=== PATIENT | female | born 1990 | race Caucasian/White ===

== ENCOUNTER 2016-11-07 14:32 | Emergency (ER) | payer OTHER ==
[~2016-11-07] VITALS: Ht 167.6 cm; Wt 93.0 kg
[2016-11-07 14:54] VITALS: Ht 167.6 cm; Wt 93.0 kg
[2016-11-07] MEDS ORDERED: CEPH-443 PO (15:57)
--- NOTE | 2016-11-07 16:00 | ERD ---
ER Documentation Chief Complaint Date/Time DATE: 11/07/16 TIME: 15:58 Chief Complaint swelling of the left ring finger with abscess HPI This 25-year-old female presents with some swelling and redness on the proximal left ring finger. History is significant for possible thorn foreign body sustained 3 years ago. She denies any new injury, fevers. She denies any bleeding or discharge. She has noticed some increasing redness and swelling over the last week ROS All systems reviewed and are negative except as per history of present illness. Medications Home Meds Active Scripts Cephalexin* (Keflex*) 500 Mg Capsule, 500 MG PO QID for 7 Days, CAP Prov:STORM HERZOG MD 11/07/16 Allergies Allergies: Coded Allergies: No Known Allergy (Unverified , 11/07/16) PMhx/Soc Medical and Surgical Hx: pt denies Medical Hx, pt denies Surgical Hx Physical Exam Vitals Vital Signs Date Time Temp Pulse Resp B/P Pulse Ox O2 Delivery O2 Flow Rate FiO2 11/07/16 14:54 98.4 112 20 119/71 99 Physical Exam Const: [] Alert, [id number] per Head: Atraumatic Eyes: Normal Conjunctiva ENT: Normal External Ears, Nose and Mouth. Neck: Full range of motion..~ No meningismus. Resp: Clear to auscultation bilaterally Cardio: Regular rate and rhythm, no murmurs Abd: Soft, non tender, non distended. Normal bowel sounds Skin: No petechiae or rashes. There is a 1 cm erythematous swelling at the proximal volar aspect the left ring finger. There is a small pustule with a black dot Back: No midline or flank tenderness Ext: No cyanosis, or edema Neur: Awake and alert Psych: Normal Mood and Affect Procedures/MDM Procedure note-attempt at ring removal was performed but patient declined ring cutting. Further attempts at removal removed at this there is no significant circumferential swelling. Procedure note-1 cc of lidocaine was used for local nutrition around the area of erythema and pustule on the proximal left third digit. Posterior was unroofed and debrided and approximately 0.75 cm old thorn was removed. Pus was expressed. Wound was dressed and patient tolerated procedure well. Patient presents with an old subcutaneous thorn foreign body successfully removed from the proximal left third digit. There is no significant signs of cellulitis and no evidence of tenosynovitis no appreciation of residual foreign body. There is no evidence of deficits or ischemia. Patient was discharged home instructions for wound care and Keflex. Patient is advised to return for increased redness, fevers, new worsening symptoms. Departure Diagnosis: Primary Impression: Foreign body (FB) in soft tissue Condition: Stable Patient Instructions: Foreign Body, Soft Tissue (Removed) Additional Instructions: Recheck for worsening redness, fevers, new worsening symptoms. STORM HERZOG MD November 07, 2016 16:00
== END 2016-11-07 16:14 | disposition home or self-care (01) ==
LOC: FTE 14:32
DX: S60.445A External constriction of left ring finger, initial encounter (principal); W49.04XA Ring or other jewelry causing external constriction, initial encounter; Y92.9 Unspecified place or not applicable
CPT/HCPCS: 99283